=== PATIENT | female | born 1945 | race Caucasian/White ===

== ENCOUNTER → 2020-09-09 | Outpatient (CLI) | payer OTHER | LOC: RAD 10:11 | PROVIDERS: ATTEND Nurse Practitioner | DX: E78.2 Mixed hyperlipidemia (principal) ==

== ENCOUNTER → 2020-09-22 | Outpatient (CLI) | payer OTHER | LOC: RAD 13:31 | PROVIDERS: ATTEND Nurse Practitioner | DX: M17.12 Unilateral primary osteoarthritis, left knee (principal); M25.462 Effusion, left knee; M25.762 Osteophyte, left knee ==

== ENCOUNTER 2021-03-09 13:34 | Emergency (ER) | payer OTHER ==
[~2021-03-09] VITALS: Ht 167.6 cm; Wt 54.4 kg
[2021-03-09] MEDS ORDERED: VITCB500GO PO (14:00)
[2021-03-09] MEDS ORDERED: MAGNESIUM500 MG PO (14:01)
[2021-03-09] MEDS ORDERED: MULTI VITAMIN1 EACH PO (14:01)
[2021-03-09] MEDS ORDERED: IBUPROFEN 400400 M2 PO (16:02)
[2021-03-09] MEDS ORDERED: FLEXERIL PO (16:02)
[2021-03-09] MEDS ORDERED: TYLENOL325 M1 PO (16:02)
[2021-03-09 16:15] VITALS: BP 140/68
== END 2021-03-09 16:15 | disposition home or self-care (01) ==
LOC: ER 13:34
DX: S52.502A Unspecified fracture of the lower end of left radius, initial encounter for closed fracture (principal); S80.812A Abrasion, left lower leg, initial encounter; I10 Essential (primary) hypertension; R53.1 Weakness; F41.9 Anxiety disorder, unspecified; Z90.89 Acquired absence of other organs; Z90.49 Acquired absence of other specified parts of digestive tract; Z79.899 Other long term (current) drug therapy; Z79.891 Long term (current) use of opiate analgesic; Z88.0 Allergy status to penicillin; V49.09XA Driver injured in collision with other motor vehicles in nontraffic accident, initial encounter; Y93.89 Activity, other specified; Y92.89 Other specified places as the place of occurrence of the external cause; Y99.8 Other external cause status